=== PATIENT | male | born 1975 | race Caucasian/White ===

== ENCOUNTER 2018-03-05 15:20 | Inpatient (IN) | payer OTHER ==
[2018-03-05 16:41] VITALS: BMI 20.9
--- NOTE | 2018-03-05 17:27 | HP ---
COWS - Scale Resting Pulse: 1= [place] 81-100 Sweatin=Flushed/Facial Moisture Restless Observation: 1= Difficult to Sit Still Pupil Size: 0= Normal to Room Light Bone or Joint Aches: 2= Severe Diffuse Aches Runny Nose/ Eye Tearin= Runny Nose/Eyes GI Upset > 30mins: 3= Vomiting/Diarrhea Tremor Observation: 1= Tremor [place], Not Seen Yawning Observation: 1= 1-2x During Session Anxiety or Irritability: 2=Irritable/Anxious Goose Flesh Skin: 0=Smooth Skin COWS Score: 15 CIWA Score - CIWA Score Nausea/Vomitin Muscle Tremors: 3 Anxiety: 3 Agitation: 3 Paroxysmal Sweats: 3 Orientation: 0-Oriented Tacttile Disturbances: 0-None Auditory Disturbances: 0-None Visual Disturbances: 0-None Headache: 0-None Present CIWA-Ar Total Score: 14 Admission ROS [facility] - HPI Chief Complaint: "I need help from drugs" Allergies/Adverse Reactions: Allergies Allergy/AdvReac Type Severity Reaction Status Date / Time phenobarbital Allergy Severe Verified 03/05/18 17:00 History of Present Illness: 43 y/o male with a hx of poly substance abuse presents today requesting detox. Pt was last here in 2016 and said he has been running the streets since then. States he has been sober for 4 yrs years ago due to incarceration. Denies drug induced seizure. Denies past nor current SI Hx of Hep C Pt's urine negative for heroin but states he uses heroin round the clock with his last use today. Utox positive for fentanyl Exam Limitations: No Limitations - Ebola screening Have you traveled outside of the country in the last 21 days: No Have you had contact with anyone from an Ebola affected area: No Have you been sick,other than usual withdrawal symptoms: No Do you have a fever: No - Review of Systems Constitutional: Chills, Night Sweats, Changes in sleep, Unintentional Wgt. Loss EENT: reports: Nose Congestion Respiratory: reports: No Symptoms reported Cardiac: reports: No Symptoms Reported GI: reports: Diarrhea : reports: Urgency Musculoskeletal: reports: Joint Pain Integumentary: reports: No Symptoms Reported Neuro: reports: No Symptoms reported Endocrine: reports: No Symptoms Reported Hematology: reports: No Symptoms Reported Psychiatric: reports: Orientated x3, Anxious Other Systems: Reviewed and Negative Patient History - Patient Medical History Hx Anemia: No Hx Asthma: No Hx Chronic Obstructive Pulmonary Disease (COPD): No Hx Cancer: No Hx Cardiac Disorders: No Hx Congestive Heart Failure: No Hx Hypertension: No Hx Hypercholesterolemia: No Hx Pacemaker: No HX Cerebrovascular Accident: No Hx Seizures: No Hx Dementia: No Hx Diabetes: No Hx Gastrointestinal Disorders: No Hx Genitourinary Disorders: No Hx Sexually Transmitted Disorders: No Hx Renal Disease (ESRD): No Hx Thyroid Disease: No Hx Human Immunodeficiency Virus (HIV): No (negative) Hx Hepatitis C: Yes (pending treatment.) Hx Depression: No Hx Suicide Attempt: No (denies) Hx Bipolar Disorder: No Hx Schizophrenia: No - Patient Surgical History Past Surgical History: No Hx Neurologic Surgery: No Hx Cataract Extraction: No Hx Cardiac Surgery: No Hx Lung Surgery: No Hx Breast Surgery: No Hx Breast Biopsy: No Hx Abdominal Surgery: No Hx Appendectomy: No Hx Cholecystectomy: No Hx Genitourinary Surgery: No Hx Section: No Hx Orthopedic Surgery: No Anesthesia Reaction: No - PPD History Previous Implant?: Yes Documented Results: Negative w/proof Implanted On Prior R Admission?: Yes Date: 01/15/16 PPD to be Administered?: Yes - Reproductive History Patient is a Female of Child Bearing Age (11 -55 yrs old): No - Smoking Cessation Smoking history: Current every day smoker Have you smoked in the past 12 months: Yes Aproximately how many cigarettes per day: 10 Hx Chewing Tobacco Use: No Initiated information on smoking cessation: Yes 'Breaking Loose' booklet given: 03/05/18 - Substance & Tx. History Hx Alcohol Use: Yes Hx Substance Use: Yes Substance Use Type: Cocaine, Heroin, Marijuana, Opiates Hx Substance Use Treatment: Yes - Substances Abused Cocaine Route: Injection Frequency: Daily Amount used: 2-3 GRAM Age of first use: 41 Date of Last Use: 03/05/18 Alcohol Route: Oral Frequency: Daily Amount used: 1/2 PINT of liquor, 6 pack (12 OZ) beer Age of first use: 13 Date of Last Use: 03/05/18 Marijuana/Hashish Route: Smoking Frequency: Daily Amount used: 1/2 OZ Age of first use: 13 Date of Last Use: 03/05/18 Heroin Route: Injection Frequency: Daily Amount used: 30 BAGS Age of first use: 14 Date of Last Use: 03/05/18 Admission Physical Exam [facility] - Vital Signs Vital Signs: Vital Signs - 24 hr 03/05/18 16:39 Temperature 97.7 F Pulse Rate 87 Respiratory 18 Rate Blood Pressure 126/78 - Physical General Appearance: Yes: Moderate Distress, Anxious HEENTM: Yes: Nasal Congestion Respiratory: Yes: Lungs Clear, Normal Breath Sounds, No Respiratory Distress, No Accessory Muscle Use Neck: Yes: No masses,lesions,Nodules, Trachea in good position Breast: Yes: Breast Exam Deferred Cardiology: Yes: Regular Rhythm, Regular Rate Abdominal: Yes: Non Tender, Soft Genitourinary: Yes: Oliguria Back: Yes: Other (scratch [place] from scratching) Musculoskeletal: Yes: full range of Motion, Gait Steady, Back pain Extremities: Yes: Normal Capillary Refill, Normal Inspection, Non-Tender Neurological: Yes: Fully Oriented, Alert, Motor Strength 5/5, Other (sad, teary) Integumentary: Yes: Dry, Warm, Track [place] (on arms) Lymphatic: Yes: Within Normal Limits - Diagnostic (1) Alcohol dependence with uncomplicated withdrawal Current Visit: Yes Status: Acute (2) Cocaine dependence Current Visit: Yes Status: Chronic Qualifiers: Substance use status: uncomplicated Qualified Code(s): F14.20 - Cocaine dependence, uncomplicated (3) Marijuana dependence Current Visit: Yes Status: Chronic (4) Nicotine dependence Current Visit: Yes Status: Chronic Qualifiers: Nicotine product type: cigarettes Substance use status: uncomplicated Qualified Code(s): F17.210 - Nicotine dependence, cigarettes, uncomplicated (5) Opioid dependence with withdrawal Current Visit: Yes Status: Chronic (6) Substance or medication-induced sleep disorder, insomnia type Current Visit: Yes Status: Suspected (7) Weight loss Current Visit: Yes Status: Chronic (8) Hepatitis C Current Visit: Yes Status: Chronic Qualifiers: Viral hepatitis chronicity: chronic Hepatic coma status: without hepatic coma Qualified Code(s): B18.2 - Chronic viral hepatitis C Cleared for Admission [facility] - Detox or Rehab [facility] Level of Care: Medically Managed Detox Regimen/Protocol: Methadone/Valium [facility] Breath Alcohol Content Breath Alcohol Content: 0 Urine Drug Screen - Results Drug Screen Negative: No Urine Drug Screen Results: THC-Marijuana, CHRISTY-Cocaine, OPI-Opiates, AMP- Amphetamines, MET-Methamphetamine, MDMA-Ecstasy, FEN-Fentanyl
[2018-03-05] MEDS ORDERED: guaiFENesin/D-METHORPHAN HB 10 ML UNIT-DOSE CUPS PO PRN (18:12)
[2018-03-05] MEDS ORDERED: MAGNESIUM HYDROX 2400MG/30ML ORAL SUSPENSION 30 ML CUP PO PRN (18:12)
[2018-03-05] MEDS ORDERED: MENTHOL/PHENOL 1 EACH UD MM PRN (18:12)
[2018-03-05] MEDS ORDERED: MAGNESIUM CITRATE 300 ML BOTTLE PO PRN (18:12)
[2018-03-05] MEDS ORDERED: IBUPROFEN 400 MG TABLET (FP) PO PRN (18:12)
[2018-03-05] MEDS ORDERED: METHADONE HCL 10 MG TABLET (FOR DETOX USE ONLY) PO ONE ×2 (18:12→23:00)
[2018-03-05] MEDS ORDERED: LOPERAMIDE HCL 2 MG CAPSULE PO PRN (18:12)
[2018-03-05] MEDS ORDERED: P-EPHED 60MG/TRIPROLIDI 2.5MG TABLET PO PRN (18:12)
[2018-03-05] MEDS ORDERED: ACETAMINOPHEN 325 MG TABLET (FP) PO PRN (18:12)
[2018-03-05] MEDS ORDERED: NICOTINE POLACRILEX 2 MG GUM BC PRN (18:12)
[2018-03-05] MEDS ORDERED: MAG HYDROX/AL HYDROX/SIMETH 30 ML UNIT-DOSE CUP PO PRN (18:12)
[2018-03-05] MEDS ORDERED: diazePAM 5 MG TABLET PO ONE (18:12)
[2018-03-05] MEDS: NICOTINE 14 MG/24 HOURS TOPICAL PATCH TD SCH (19:52)
[2018-03-05] MEDS: THIAMINE HCL 100 MG TABLET (FP) PO SCH (22:17)
[2018-03-05] MEDS: diazePAM 5 MG TABLET PO SCH (22:17)
[2018-03-06 01:53] LABS: URINE APPEARANCE CLEAR; URINE BILIRUBIN NEGATIVE (<2.0 mg/dL); URINE COLOR DKYELLOW; URINE GLUCOSE (UA) NEGATIVE (NEGATIVE); URINE KETONE NEGATIVE (NEGATIVE); URINE LEUK ESTERASE NEGATIVE (NEGATIVE); URINE NITRITE NEGATIVE (NEGATIVE); URINE PROTEIN 1+ (NEGATIVE)
[2018-03-06 02:17] LABS: URINE HYALINE CAST 2 /lpf; URINE MUCUS FEW
[2018-03-06] MEDS: diazePAM 5 MG TABLET PO SCH ×3 (05:46→22:38)
--- NOTE | 2018-03-06 07:41 | CONSULT ---
[facility] Psychiatric Consult - Data Date of interview: 03/06/18 Admission source: [facility] Identifying data: This is a 43 years old male, single, father of two, domiciled , unem[ployed, on PA, with no psychiatgric hospitalization history, reports history of Heroin, Cocaine Cannabis, Alcohol and Nicotine dependence, reports withdrawal symptoms and seeking detox. Substance Abuse History: - Smoking Cessation. Smoking history: Current every day smoker. Have you smoked in the past 12 months: Yes. Aproximately how many cigarettes per day: 10. Hx Chewing Tobacco Use: No. Initiated information on smoking cessation: Yes. 'Breaking Loose' booklet given: 03/05/18. - Substance & Tx. History. Hx Alcohol Use: Yes. Hx Substance Use: Yes. Substance Use Type : Cocaine, Heroin, Marijuana, Opiates. Hx Substance Use Treatment: Yes. - Substances Abused. Cocaine. Route: Injection. Frequency: Daily. Amount used: 2-3 GRAM. Age of first use: 41. Date of Last Use: 03/05/18. Alcohol. Route: Oral. Frequency: Daily. Amount used: 1/2 PINT of liquor, 6 pack (12 OZ) beer. Age of first use: 13. Date of Last Use: 03/05/18. Marijuana/Hashish. Route: Smoking. Frequency: Daily. Amount used: 1/2 OZ. Age of first use: 13. Date of Last Use: 03/05/18. Heroin. Route: Injection. Frequency: Daily. Amount used: 30 BAGS. Age of first use: 14. Date of Last Use: 03/05/18 Medical History: Weigt loss history, HepC+ Psychiatric History: Denies past psychiatric history, reports anxiety and depression after using drugs. Denies suicidal, homicidal history, denies psychiatric hospitalization history as well. Physical/Sexual Abuse/Trauma History: Denies Additional Comment: Observation. Detox Unit Care Protocol Mental Status Exam - Mental Status Exam Alert and Oriented to: Person Cognitive Function: Fair Patient Appearance: Unkempt Mood: Apprehensive Affect: Mood Congruent Patient Behavior: Cooperative Speech Pattern: Rambling Voice Loudness: Mildly Soft/Quiet Thought Process: Circumstantial, Goal Oriented Thought Disorder: Being Controlled Hallucinations: Denies Suicidal Ideation: Denies Homicidal Ideation: Denies Insight/Judgement: Fair Sleep: Difficulty falling asleep Appetite: Weight loss Muscle strength/Tone: Mild Hypotonicity Gait/Station: Shuffling Additional Comments: Observation. Detox Unit Care Protocol Psychiatric Findings - Problem List ([place] 1, 2,3) (1) Alcohol dependence with uncomplicated withdrawal Current Visit: Yes Status: Acute (2) Cocaine dependence Current Visit: Yes Status: Chronic Qualifiers: Substance use status: uncomplicated Qualified Code(s): F14.20 - Cocaine dependence, uncomplicated (3) Hepatitis C Current Visit: Yes Status: Chronic Qualifiers: Viral hepatitis chronicity: chronic Hepatic coma status: without hepatic coma Qualified Code(s): B18.2 - Chronic viral hepatitis C (4) Marijuana dependence Current Visit: Yes Status: Chronic (5) Nicotine dependence Current Visit: Yes Status: Chronic Qualifiers: Nicotine product type: cigarettes Substance use status: uncomplicated Qualified Code(s): F17.210 - Nicotine dependence, cigarettes, uncomplicated (6) Opioid dependence with withdrawal Current Visit: Yes Status: Chronic (7) Weight loss Current Visit: Yes Status: Chronic (8) Substance or medication-induced sleep disorder, insomnia type Current Visit: Yes Status: Suspected - Initial Treatment Plan Initial Treatment Plan: Observation. Detox Unit Care Protocol
[2018-03-06] MEDS ORDERED: METHADONE HCL 10 MG TABLET (FOR DETOX USE ONLY) PO SCH (10:00)
[2018-03-06] MEDS: PRENATAL VITAMINS W/ FOLIC ACID TABLET (FP) PO SCH (10:25)
[2018-03-06] MEDS: diazePAM 5 MG TABLET PO PRN (10:26)
[2018-03-06] MEDS: NICOTINE 14 MG/24 HOURS TOPICAL PATCH TD SCH (10:30)
--- NOTE | 2018-03-06 10:38 | EKG ---
Test Reason : Blood Pressure : / mmHG Vent. Rate : 066 BPM Atrial Rate : 066 BPM P-R Int : 130 ms QRS Dur : 092 ms QT Int : 430 ms P-R-T Axes : 070 078 057 degrees QTc Int : 450 ms NORMAL SINUS RHYTHM NORMAL ECG NO PREVIOUS ECGS AVAILABLE Confirmed by RAVEN SIN MD ([id number]) on 03/06/2018 10:37:52 AM Referred By: Viri Hernandez Confirmed By:RAVEN SIN MD
[2018-03-06 10:41] LABS: HEMATOCRIT 38.2 % (35.4-49); HEMOGLOBIN 13.1 GM/dL (11.7-16.9); MCH 29.7 pg (25.7-33.7); MCHC 34.3 g/dl (32.0-35.9); MEAN CELL VOLUME 86.6 fl (80-96); MEAN PLT VOLUME 8.4 fl (7.5-11.1); PLATELET COUNT 232 K/MM3 (134-434); RBC 4.41 M/mm3 (4.00-5.60); RDW 15.3 % (11.9-15.9); WHITE BLOOD COUNT 6.4 K/mm3 (4.0-10.0)
[2018-03-06 11:02] LABS: ALBUMIN 3.8 g/dl (3.4-5.0); ALK PHOS 106 U/L (45-117); ANION GAP 7 MMOL/L (8-16); BILIRUBIN,TOTAL 0.3 mg/dL (0.2-1); BLOOD UREA NITROGEN 17 mg/dL (7-18); CALCIUM 8.9 mg/dL (8.5-10.1); CHLORIDE 104 mmol/L (98-107); CO2 29 mmol/L (21-32); CREATININE 0.9 mg/dL (0.55-1.3); GLUCOSE,RANDOM 76 mg/dL (74-106); POTASSIUM 4.1 mmol/L (3.5-5.1); SGOT/AST 87 U/L (15-37); SGPT/ALT 117 U/L (13-61); SODIUM 140 mmol/L (136-145)
--- NOTE | 2018-03-06 11:53 | PN ---
[facility] CIWA - CIWA Score Nausea/Vomitin-Mild Nausea/No Vomiting Muscle Tremors: 3 Anxiety: 3 Agitation: 3 Paroxysmal Sweats: 1-Minimal Palms Moist Orientation: 1-Uncertain about Date Tacttile Disturbances: 1-Very Mild Itch/Numbness Auditory Disturbances: 0-None Visual Disturbances: 0-None Headache: 1-Very Mild CIWA-Ar Total Score: 14 S COWS - Scale Resting Pulse: 0= [place] 80 or Below Sweatin= Chills/Flushing Restless Observation: 1= Difficult to Sit Still Pupil Size: 0= Normal to Room Light Bone or Joint Aches: 2= Severe Diffuse Aches Runny Nose/ Eye Tearin= Nasal Congestion GI Upset > 30mins: 2= Nausea/Diarrhea Tremor Observation of Outstretched Hands: 2= Slight Tremor Visible Yawning Observation: 1= 1-2x During Session Anxiety or Irritability: 2=Irritable/Anxious Goose Flesh Skin: 0=Smooth Skin COWS Score: 12 S Progress Note (SOAP) Subjective: sweat tremor restlessness anxiety body aches joints pain c/o left foot fungal toes left foot mild swell no acute bleeding skin intact mild redness around 5th toe limited mobility Objective: 03/06/18 11:55 Vital Signs Temperature 97.3 F L 03/06/18 09:17 Pulse Rate 76 03/06/18 09:17 Respiratory Rate 18 03/06/18 09:17 Blood Pressure 118/83 03/06/18 09:17 O2 Sat by Pulse Oximetry (%) Laboratory Last Values WBC 6.4 K/mm3 (4.0-10.0) 03/06/18 07:40 RBC 4.41 M/mm3 (4.00-5.60) 03/06/18 07:40 Hgb 13.1 GM/dL (11.7-16.9) 03/06/18 07:40 Hct 38.2 % (35.4-49) 03/06/18 07:40 MCV 86.6 fl (80-96) 03/06/18 07:40 MCH 29.7 pg (25.7-33.7) 03/06/18 07:40 MCHC 34.3 g/dl (32.0-35.9) 03/06/18 07:40 RDW 15.3 % (11.9-15.9) 03/06/18 07:40 Plt Count 232 K/MM3 (134-434) D 03/06/18 07:40 MPV 8.4 fl (7.5-11.1) 03/06/18 07:40 Sodium 140 mmol/L (136-145) 03/06/18 07:40 Potassium 4.1 mmol/L (3.5-5.1) 03/06/18 07:40 Chloride 104 mmol/L (98-107) 03/06/18 07:40 Carbon Dioxide 29 mmol/L (21-32) 03/06/18 07:40 Anion Gap 7 MMOL/L (8-16) L 03/06/18 07:40 BUN 17 mg/dL (7-18) 03/06/18 07:40 Creatinine 0.9 mg/dL (0.55-1.3) 03/06/18 07:40 Creat Clearance w eGFR > 60 (>60) 03/06/18 07:40 Random Glucose 76 mg/dL (74-106) 03/06/18 07:40 Calcium 8.9 mg/dL (8.5-10.1) 03/06/18 07:40 Total Bilirubin 0.3 mg/dL (0.2-1) 03/06/18 07:40 AST 87 U/L (15-37) H 03/06/18 07:40 ALT 117 U/L (13-61) H 03/06/18 07:40 Alkaline Phosphatase 106 U/L (45-117) 03/06/18 07:40 Total Protein 8.0 g/dl (6.4-8.2) 03/06/18 07:40 Albumin 3.8 g/dl (3.4-5.0) 03/06/18 07:40 Urine Color Dkyellow 03/05/18 23:00 Urine Appearance Clear 03/05/18 23:00 Urine pH 5.0 (5.0-8.0) D 03/05/18 23:00 Ur Specific [place] 1.026 (1.010-1.035) 03/05/18 23:00 Urine Protein 1+ (NEGATIVE) H 03/05/18 23:00 Urine Glucose (UA) Negative (NEGATIVE) 03/05/18 23:00 Urine Ketones Negative (NEGATIVE) 03/05/18 23:00 Urine Blood Negative (NEGATIVE) 03/05/18 23:00 Urine Nitrite Negative (NEGATIVE) 03/05/18 23:00 Urine Bilirubin Negative (<2.0 mg/dL) 03/05/18 23:00 Urine Urobilinogen 2.0 mg/dL (0.2-1.0) 03/05/18 23:00 Ur Leukocyte Esterase Negative (NEGATIVE) 03/05/18 23:00 Urine WBC (Auto) 3 /hpf (3-5) 03/05/18 23:00 Urine RBC (Auto) 3 /hpf (0-3) 03/05/18 23:00 Hyaline Casts 2 /lpf 03/05/18 23:00 Urine Mucus Few 03/05/18 23:00 RPR Titer Nonreactive (NONREACTIVE) 03/06/18 07:40 lab noted Assessment: 03/06/18 11:56 withdrawal sx rule out left foot 5th toe fracture Plan: continue detox x ray left foot
[2018-03-06] MEDS: CLOTRIMAZOLE 1% CREAM 15 GM TUBE TP SCH ×2 (13:00→22:39)
[2018-03-06] MEDS: THIAMINE HCL 100 MG TABLET (FP) PO SCH (22:38)
[2018-03-06] MEDS: MELATONIN 5 MG TABLETS PO PRN (22:41)
[2018-03-07] MEDS: diazePAM 5 MG TABLET PO PRN ×2 (05:50→15:09)
[2018-03-07] MEDS: diazePAM 5 MG TABLET PO SCH ×2 (10:08→22:22)
[2018-03-07] MEDS: METHADONE HCL 5 MG TABLET (FOR DETOX USE ONLY) PO SCH (10:08)
[2018-03-07] MEDS: CLOTRIMAZOLE 1% CREAM 15 GM TUBE TP SCH ×2 (10:08→22:22)
[2018-03-07] MEDS: PRENATAL VITAMINS W/ FOLIC ACID TABLET (FP) PO SCH (10:09)
[2018-03-07] MEDS: NICOTINE 14 MG/24 HOURS TOPICAL PATCH TD SCH (10:09)
--- NOTE | 2018-03-07 11:28 | PN ---
[facility] CIWA - CIWA Score Nausea/Vomitin-No Nausea/No Vomiting Muscle Tremors: 3 Anxiety: 2 Agitation: 2 Paroxysmal Sweats: 1-Minimal Palms Moist Orientation: 0-Oriented Tacttile Disturbances: 1-Very Mild Itch/Numbness Auditory Disturbances: 1-Very Mild Visual Disturbances: 0-None Headache: 1-Very Mild CIWA-Ar Total Score: 11 S COWS - Scale Resting Pulse: 1= [place] 81-100 Sweatin= Chills/Flushing Restless Observation: 1= Difficult to Sit Still Pupil Size: 0= Normal to Room Light Bone or Joint Aches: 2= Severe Diffuse Aches Runny Nose/ Eye Tearin= Nasal Congestion GI Upset > 30mins: 1= Stomach Cramp Tremor Observation of Outstretched Hands: 1= Tremor [place], Not Seen Yawning Observation: 1= 1-2x During Session Anxiety or Irritability: 1=Feels Anxious/Irritable Goose Flesh Skin: 0=Smooth Skin COWS Score: 10 [facility] Progress Note (SOAP) Subjective: body aches joints pain sweat tremor anxiety restlessness Objective: 03/07/18 11:27 Vital Signs Temperature 98.1 F 03/07/18 09:40 Pulse Rate 92 H 03/07/18 09:40 Respiratory Rate 18 03/07/18 09:40 Blood Pressure 109/75 03/07/18 09:40 O2 Sat by Pulse Oximetry (%) Laboratory Last Values WBC 6.4 K/mm3 (4.0-10.0) 03/06/18 07:40 RBC 4.41 M/mm3 (4.00-5.60) 03/06/18 07:40 Hgb 13.1 GM/dL (11.7-16.9) 03/06/18 07:40 Hct 38.2 % (35.4-49) 03/06/18 07:40 MCV 86.6 fl (80-96) 03/06/18 07:40 MCH 29.7 pg (25.7-33.7) 03/06/18 07:40 MCHC 34.3 g/dl (32.0-35.9) 03/06/18 07:40 RDW 15.3 % (11.9-15.9) 03/06/18 07:40 Plt Count 232 K/MM3 (134-434) D 03/06/18 07:40 MPV 8.4 fl (7.5-11.1) 03/06/18 07:40 Sodium 140 mmol/L (136-145) 03/06/18 07:40 Potassium 4.1 mmol/L (3.5-5.1) 03/06/18 07:40 Chloride 104 mmol/L (98-107) 03/06/18 07:40 Carbon Dioxide 29 mmol/L (21-32) 03/06/18 07:40 Anion Gap 7 MMOL/L (8-16) L 03/06/18 07:40 BUN 17 mg/dL (7-18) 03/06/18 07:40 Creatinine 0.9 mg/dL (0.55-1.3) 03/06/18 07:40 Creat Clearance w eGFR > 60 (>60) 03/06/18 07:40 Random Glucose 76 mg/dL (74-106) 03/06/18 07:40 Calcium 8.9 mg/dL (8.5-10.1) 03/06/18 07:40 Total Bilirubin 0.3 mg/dL (0.2-1) 03/06/18 07:40 AST 87 U/L (15-37) H 03/06/18 07:40 ALT 117 U/L (13-61) H 03/06/18 07:40 Alkaline Phosphatase 106 U/L (45-117) 03/06/18 07:40 Total Protein 8.0 g/dl (6.4-8.2) 03/06/18 07:40 Albumin 3.8 g/dl (3.4-5.0) 03/06/18 07:40 Urine Color Dkyellow 03/05/18 23:00 Urine Appearance Clear 03/05/18 23:00 Urine pH 5.0 (5.0-8.0) D 03/05/18 23:00 Ur Specific [place] 1.026 (1.010-1.035) 03/05/18 23:00 Urine Protein 1+ (NEGATIVE) H 03/05/18 23:00 Urine Glucose (UA) Negative (NEGATIVE) 03/05/18 23:00 Urine Ketones Negative (NEGATIVE) 03/05/18 23:00 Urine Blood Negative (NEGATIVE) 03/05/18 23:00 Urine Nitrite Negative (NEGATIVE) 03/05/18 23:00 Urine Bilirubin Negative (<2.0 mg/dL) 03/05/18 23:00 Urine Urobilinogen 2.0 mg/dL (0.2-1.0) 03/05/18 23:00 Ur Leukocyte Esterase Negative (NEGATIVE) 03/05/18 23:00 Urine WBC (Auto) 3 /hpf (3-5) 03/05/18 23:00 Urine RBC (Auto) 3 /hpf (0-3) 03/05/18 23:00 Hyaline Casts 2 /lpf 03/05/18 23:00 Urine Mucus Few 03/05/18 23:00 RPR Titer Nonreactive (NONREACTIVE) 03/06/18 07:40 lab noted Assessment: 03/07/18 11:28 withdrawal sx Plan: continue detox
[2018-03-07] MEDS: THIAMINE HCL 100 MG TABLET (FP) PO SCH (22:22)
[2018-03-08] MEDS: diazePAM 5 MG TABLET PO PRN ×4 (03:31→18:32)
[2018-03-08] MEDS: diazePAM 5 MG TABLET PO SCH ×2 (10:26→22:23)
[2018-03-08] MEDS: CLOTRIMAZOLE 1% CREAM 15 GM TUBE TP SCH ×2 (10:26→22:23)
[2018-03-08] MEDS: NICOTINE 14 MG/24 HOURS TOPICAL PATCH TD SCH (10:26)
[2018-03-08] MEDS: PRENATAL VITAMINS W/ FOLIC ACID TABLET (FP) PO SCH (10:26)
[2018-03-08] MEDS: METHADONE HCL 5 MG TABLET (FOR DETOX USE ONLY) PO SCH (10:26)
--- NOTE | 2018-03-08 12:25 | PN ---
[facility] Progress Note (SOAP) Subjective: sweat tremor body aches joints pain trouble sleep at night low energy Objective: 03/08/18 12:24 Vital Signs Temperature 97.7 F 03/08/18 09:42 Pulse Rate 118 H 03/08/18 09:42 Respiratory Rate 18 11 09:42 Blood Pressure 118/85 03/08/18 09:42 O2 Sat by Pulse Oximetry (%) Laboratory Last Values WBC 6.4 K/mm3 (4.0-10.0) 03/06/18 07:40 RBC 4.41 M/mm3 (4.00-5.60) 03/06/18 07:40 Hgb 13.1 GM/dL (11.7-16.9) 03/06/18 07:40 Hct 38.2 % (35.4-49) 03/06/18 07:40 MCV 86.6 fl (80-96) 03/06/18 07:40 MCH 29.7 pg (25.7-33.7) 03/06/18 07:40 MCHC 34.3 g/dl (32.0-35.9) 03/06/18 07:40 RDW 15.3 % (11.9-15.9) 03/06/18 07:40 Plt Count 232 K/MM3 (134-434) D 03/06/18 07:40 MPV 8.4 fl (7.5-11.1) 03/06/18 07:40 Sodium 140 mmol/L (136-145) 03/06/18 07:40 Potassium 4.1 mmol/L (3.5-5.1) 03/06/18 07:40 Chloride 104 mmol/L (98-107) 03/06/18 07:40 Carbon Dioxide 29 mmol/L (21-32) 03/06/18 07:40 Anion Gap 7 MMOL/L (8-16) L 03/06/18 07:40 BUN 17 mg/dL (7-18) 03/06/18 07:40 Creatinine 0.9 mg/dL (0.55-1.3) 03/06/18 07:40 Creat Clearance w eGFR > 60 (>60) 03/06/18 07:40 Random Glucose 76 mg/dL (74-106) 03/06/18 07:40 Calcium 8.9 mg/dL (8.5-10.1) 03/06/18 07:40 Total Bilirubin 0.3 mg/dL (0.2-1) 03/06/18 07:40 AST 87 U/L (15-37) H 03/06/18 07:40 ALT 117 U/L (13-61) H 03/06/18 07:40 Alkaline Phosphatase 106 U/L (45-117) 03/06/18 07:40 Total Protein 8.0 g/dl (6.4-8.2) 03/06/18 07:40 Albumin 3.8 g/dl (3.4-5.0) 03/06/18 07:40 Urine Color Dkyellow 03/05/18 23:00 Urine Appearance Clear 03/05/18 23:00 Urine pH 5.0 (5.0-8.0) D 03/05/18 23:00 Ur Specific [place] 1.026 (1.010-1.035) 03/05/18 23:00 Urine Protein 1+ (NEGATIVE) H 03/05/18 23:00 Urine Glucose (UA) Negative (NEGATIVE) 03/05/18 23:00 Urine Ketones Negative (NEGATIVE) 03/05/18 23:00 Urine Blood Negative (NEGATIVE) 03/05/18 23:00 Urine Nitrite Negative (NEGATIVE) 03/05/18 23:00 Urine Bilirubin Negative (<2.0 mg/dL) 03/05/18 23:00 Urine Urobilinogen 2.0 mg/dL (0.2-1.0) 03/05/18 23:00 Ur Leukocyte Esterase Negative (NEGATIVE) 03/05/18 23:00 Urine WBC (Auto) 3 /hpf (3-5) 03/05/18 23:00 Urine RBC (Auto) 3 /hpf (0-3) 03/05/18 23:00 Hyaline Casts 2 /lpf 03/05/18 23:00 Urine Mucus Few 03/05/18 23:00 RPR Titer Nonreactive (NONREACTIVE) 03/06/18 07:40 lab noted Assessment: 03/08/18 12:25 withdrawal sx Plan: continue detox
[2018-03-08] MEDS: THIAMINE HCL 100 MG TABLET (FP) PO SCH (22:23)
[2018-03-08] MEDS: MELATONIN 5 MG TABLETS PO PRN (22:24)
[2018-03-09] MEDS ORDERED: diazePAM 5 MG TABLET PO SCH (10:00)
[2018-03-09] MEDS ORDERED: METHADONE HCL 10 MG TABLET (FOR DETOX USE ONLY) PO SCH (10:00)
[2018-03-09] MEDS: PRENATAL VITAMINS W/ FOLIC ACID TABLET (FP) PO SCH (10:42)
[2018-03-09] MEDS: NICOTINE 14 MG/24 HOURS TOPICAL PATCH TD SCH (10:43)
[2018-03-09] MEDS: CLOTRIMAZOLE 1% CREAM 15 GM TUBE TP SCH ×2 (10:43→22:21)
--- NOTE | 2018-03-09 12:00 | PN ---
[facility] Progress Note (SOAP) Subjective: feeling better no body ache no tremor less sweat social with peers in day room Objective: 03/09/18 11:59 Vital Signs Temperature 97.7 F 03/09/18 09:30 Pulse Rate 118 H 03/09/18 09:30 Respiratory Rate 18 03/09/18 09:30 Blood Pressure 118/80 03/09/18 09:30 O2 Sat by Pulse Oximetry (%) Laboratory Last Values WBC 6.4 K/mm3 (4.0-10.0) 03/06/18 07:40 RBC 4.41 M/mm3 (4.00-5.60) 03/06/18 07:40 Hgb 13.1 GM/dL (11.7-16.9) 03/06/18 07:40 Hct 38.2 % (35.4-49) 03/06/18 07:40 MCV 86.6 fl (80-96) 03/06/18 07:40 MCH 29.7 pg (25.7-33.7) 03/06/18 07:40 MCHC 34.3 g/dl (32.0-35.9) 03/06/18 07:40 RDW 15.3 % (11.9-15.9) 03/06/18 07:40 Plt Count 232 K/MM3 (134-434) D 03/06/18 07:40 MPV 8.4 fl (7.5-11.1) 03/06/18 07:40 Sodium 140 mmol/L (136-145) 03/06/18 07:40 Potassium 4.1 mmol/L (3.5-5.1) 03/06/18 07:40 Chloride 104 mmol/L (98-107) 03/06/18 07:40 Carbon Dioxide 29 mmol/L (21-32) 03/06/18 07:40 Anion Gap 7 MMOL/L (8-16) L 03/06/18 07:40 BUN 17 mg/dL (7-18) 03/06/18 07:40 Creatinine 0.9 mg/dL (0.55-1.3) 03/06/18 07:40 Creat Clearance w eGFR > 60 (>60) 03/06/18 07:40 Random Glucose 76 mg/dL (74-106) 03/06/18 07:40 Calcium 8.9 mg/dL (8.5-10.1) 03/06/18 07:40 Total Bilirubin 0.3 mg/dL (0.2-1) 03/06/18 07:40 AST 87 U/L (15-37) H 03/06/18 07:40 ALT 117 U/L (13-61) H 03/06/18 07:40 Alkaline Phosphatase 106 U/L (45-117) 03/06/18 07:40 Total Protein 8.0 g/dl (6.4-8.2) 03/06/18 07:40 Albumin 3.8 g/dl (3.4-5.0) 03/06/18 07:40 Urine Color Dkyellow 03/05/18 23:00 Urine Appearance Clear 03/05/18 23:00 Urine pH 5.0 (5.0-8.0) D 03/05/18 23:00 Ur Specific [place] 1.026 (1.010-1.035) 03/05/18 23:00 Urine Protein 1+ (NEGATIVE) H 03/05/18 23:00 Urine Glucose (UA) Negative (NEGATIVE) 03/05/18 23:00 Urine Ketones Negative (NEGATIVE) 03/05/18 23:00 Urine Blood Negative (NEGATIVE) 03/05/18 23:00 Urine Nitrite Negative (NEGATIVE) 03/05/18 23:00 Urine Bilirubin Negative (<2.0 mg/dL) 03/05/18 23:00 Urine Urobilinogen 2.0 mg/dL (0.2-1.0) 03/05/18 23:00 Ur Leukocyte Esterase Negative (NEGATIVE) 03/05/18 23:00 Urine WBC (Auto) 3 /hpf (3-5) 03/05/18 23:00 Urine RBC (Auto) 3 /hpf (0-3) 03/05/18 23:00 Hyaline Casts 2 /lpf 03/05/18 23:00 Urine Mucus Few 03/05/18 23:00 RPR Titer Nonreactive (NONREACTIVE) 03/06/18 07:40 lab noted Assessment: 03/09/18 11:59 mild withdrawal sx Plan: medically supervised detox
[2018-03-09] MEDS: THIAMINE HCL 100 MG TABLET (FP) PO SCH (22:21)
[2018-03-09] MEDS: MELATONIN 5 MG TABLETS PO PRN (22:21)
[2018-03-10] MEDS ORDERED: METHADONE HCL 5 MG TABLET (FOR DETOX USE ONLY) PO SCH (06:00)
[2018-03-10 06:20] VITALS: BP 119/95; PULSE 118; TEMP 97.7
--- NOTE | 2018-03-10 08:33 | DS ---
[facility] Detox Discharge Summary Admission Date: 03/05/18 Discharge Date: 03/10/18 - History Present History: Alcohol Dependence, Cocaine Dependence, Opioid Dependence, Sedative Dependence - Physical Exam Results Vital Signs: Vital Signs Temperature 97.7 F 03/10/18 06:00 Pulse Rate 118 H 03/10/18 06:00 Respiratory Rate 18 03/10/18 06:00 Blood Pressure 119/95 03/10/18 06:00 O2 Sat by Pulse Oximetry (%) - Treatment Hospital Course: Detox Protocol Followed, Detoxed Safely, Responded well, Discharged Condition Good, Rehab Referral Accepted - Medication Discharge Medications: Ambulatory Orders NK [No Known Home Medication] 03/05/18 - Diagnosis (1) Alcohol dependence with uncomplicated withdrawal Status: Chronic (2) Sedative, hypnotic or anxiolytic dependence with withdrawal, uncomplicated Status: Chronic (3) Cocaine dependence Status: Chronic Qualifiers: Substance use status: uncomplicated Qualified Code(s): F14.20 - Cocaine dependence, uncomplicated (4) Hepatitis C Status: Chronic Qualifiers: Viral hepatitis chronicity: chronic Hepatic coma status: without hepatic coma Qualified Code(s): B18.2 - Chronic viral hepatitis C (5) Marijuana dependence Status: Chronic (6) Nicotine dependence Status: Chronic Qualifiers: Nicotine product type: cigarettes Substance use status: uncomplicated Qualified Code(s): F17.210 - Nicotine dependence, cigarettes, uncomplicated (7) Opioid dependence with withdrawal Status: Chronic (8) Sedative, hypnotic or anxiolytic dependence, uncomplicated Status: Chronic (9) Weight loss Status: Chronic (10) Substance or medication-induced sleep disorder, insomnia type Status: Suspected - AMA Did Patient Leave Against Medical Advice: No (going home)
== END 2018-03-10 07:10 | disposition home or self-care (01) | DRG 773 ==
LOC: YASAS 15:20 → Y6N 18:26
PROC: HZ2ZZZZ Detoxification Services for Substance Abuse Treatment (ICD-10-PCS; principal; 2018-03-05)
DX: F11.23 Opioid dependence with withdrawal (principal); F10.230 Alcohol dependence with withdrawal, uncomplicated; F13.230 Sedative, hypnotic or anxiolytic dependence with withdrawal, uncomplicated; F14.20 Cocaine dependence, uncomplicated; F12.20 Cannabis dependence, uncomplicated; F17.210 Nicotine dependence, cigarettes, uncomplicated; F19.282 Other psychoactive substance dependence with psychoactive substance-induced sleep disorder; B18.2 Chronic viral hepatitis C; R63.4 Abnormal weight loss; Z68.21 Body mass index [BMI] 21.0-21.9, adult
CPT/HCPCS: 36415; 80053; 81003; 81015; 85027; 86593; 93005; 93010

== ENCOUNTER 2020-05-03 12:38 | Inpatient (IN) | payer OTHER ==
[2020-05-03 13:12] VITALS: BMI 21.6
[2020-05-03] MEDS ORDERED: IBUPROFEN 400 MG TABLET (FP) PO PRN (13:12)
[2020-05-03] MEDS ORDERED: chlordiazePOXIDE HCL 25 MG CAPSULE PO PRN (13:12)
[2020-05-03] MEDS ORDERED: MAG HYDROX/AL HYDROX/SIMETH 30 ML UNIT-DOSE CUP PO PRN (13:12)
[2020-05-03] MEDS ORDERED: MAGNESIUM HYDROX 2400MG/30ML ORAL SUSPENSION 30 ML CUP PO PRN (13:12)
[2020-05-03] MEDS ORDERED: cloNIDine HCL 0.1 MG TABLET PO PRN (13:12)
[2020-05-03] MEDS ORDERED: ACETAMINOPHEN 325 MG TABLET (FP) PO PRN ×2 (13:12)
[2020-05-03] MEDS ORDERED: BISMUTH SUBSALICYLATE 524 MG/30 ML UD PO PRN (13:12)
[2020-05-03] MEDS ORDERED: NICOTINE POLACRILEX 2 MG GUM BUC PRN (13:12)
[2020-05-03] MEDS ORDERED: MAGNESIUM CITRATE 300 ML BOTTLE PO PRN (13:12)
[2020-05-03] MEDS ORDERED: MENTHOL/PHENOL 1 EACH UD MM PRN (13:12)
[2020-05-03] MEDS ORDERED: ONDANSETRON *ODT* 4 MG TABLET SL PRN (13:12)
[2020-05-03] MEDS ORDERED: chlordiazePOXIDE HCL 25 MG CAPSULE PO ONE (13:12)
[2020-05-03] MEDS ORDERED: METHADONE HCL 10 MG TABLET (FOR DETOX USE ONLY) PO ONE (13:12)
[2020-05-03] MEDS: PRENATAL VITAMINS W/ FOLIC ACID TABLET (FP) PO SCH (14:21)
[2020-05-03] MEDS: METHOCARBAMOL 500 MG TABLET PO PRN (14:21)
[2020-05-03] MEDS: chlordiazePOXIDE HCL 25 MG CAPSULE PO SCH ×2 (18:21→22:26)
[2020-05-03] MEDS: THIAMINE HCL 100 MG TABLET (FP) PO SCH (22:27)
[2020-05-03] MEDS: MELATONIN 5 MG TABLETS PO SCH (22:35)
[2020-05-04] MEDS: chlordiazePOXIDE HCL 25 MG CAPSULE PO SCH ×4 (05:36→22:26)
[2020-05-04] MEDS ORDERED: METHADONE HCL 10 MG TABLET (FOR DETOX USE ONLY) ONE (09:12)
[2020-05-04] MEDS ORDERED: METHADONE HCL 5 MG TABLET (FOR DETOX USE ONLY) ONE (09:12)
[2020-05-04] MEDS ORDERED: METHADONE (DETOX) 20 MG, METHADONE (DETOX) 5 MG PO ONE (10:00)
[2020-05-04] MEDS: PRENATAL VITAMINS W/ FOLIC ACID TABLET (FP) PO SCH (10:19)
[2020-05-04 11:11] LABS: HEMATOCRIT 37.9 % (35.4-49); HEMOGLOBIN 12.8 GM/dL (11.7-16.9); MCHC 33.8 g/dl (32.0-35.9); MEAN CELL VOLUME 85.7 fl (80-96); MEAN PLT VOLUME 7.8 fl (7.5-11.1); PLATELET COUNT 269 K/MM3 (134-434); RBC 4.43 M/mm3 (4.00-5.60); RDW 15.3 % (11.9-15.9); WHITE BLOOD COUNT 4.3 K/mm3 (4.0-10.0)
[2020-05-04 11:12] LABS: POTASSIUM 4.1 mmol/L (3.5-5.1)
[2020-05-04 11:21] LABS: CALCIUM 8.9 mg/dL (8.5-10.1)
[2020-05-04 11:22] LABS: ALBUMIN 3.6 g/dl (3.4-5.0); BLOOD UREA NITROGEN 15.8 mg/dL (7-18)
[2020-05-04 11:26] LABS: CREATININE 0.9 mg/dL (0.55-1.3); TOT PROT 7.7 g/dl (6.4-8.2)
[2020-05-04] MEDS: THIAMINE HCL 100 MG TABLET (FP) PO SCH (22:26)
[2020-05-04] MEDS: MELATONIN 5 MG TABLETS PO SCH (22:27)
[2020-05-05] MEDS ORDERED: chlordiazePOXIDE HCL 25 MG CAPSULE PO SCH (05:00)
[2020-05-05] MEDS ORDERED: METHADONE HCL 10 MG TABLET (FOR DETOX USE ONLY) PO ONE (10:00)
[2020-05-05] MEDS: LORazepam 2 MG TABLET PO SCH ×3 (10:04→22:04)
[2020-05-05] MEDS: PRENATAL VITAMINS W/ FOLIC ACID TABLET (FP) PO SCH (10:04)
[2020-05-05] MEDS ORDERED: COLLOIDAL OATMEAL 1 BAR EACH TP PRN (11:41)
[2020-05-05] MEDS: hydrOXYzine PAMOATE 25 MG CAPSULE (FP) PO PRN (15:33)
[2020-05-05] MEDS: METHOCARBAMOL 500 MG TABLET PO PRN (15:33)
[2020-05-05 17:40] LABS: HIV INTERPRETATION NEGATIVE (NEGATIVE)
[2020-05-05] MEDS: LORazepam 1 MG TABLET PO PRN (19:49)
[2020-05-05] MEDS: THIAMINE HCL 100 MG TABLET (FP) PO SCH (22:04)
[2020-05-05] MEDS: MELATONIN 5 MG TABLETS PO SCH (22:04)
[2020-05-06] MEDS ORDERED: chlordiazePOXIDE HCL 10 MG CAPSULE PO PRN
[2020-05-06] MEDS: LORazepam 1 MG TABLET PO PRN ×2 (01:00→13:18)
[2020-05-06] MEDS ORDERED: chlordiazePOXIDE HCL 10 MG CAPSULE PO SCH (05:00)
[2020-05-06] MEDS: LORazepam 1 MG TABLET PO SCH ×4 (05:15→22:00)
[2020-05-06] MEDS: hydrOXYzine PAMOATE 25 MG CAPSULE (FP) PO PRN ×2 (05:16→18:16)
[2020-05-06] MEDS ORDERED: MASKS NR ONE (08:46)
[2020-05-06] MEDS ORDERED: METHADONE HCL 5 MG TABLET (FOR DETOX USE ONLY) ONE (09:46)
[2020-05-06] MEDS ORDERED: METHADONE HCL 10 MG TABLET (FOR DETOX USE ONLY) ONE (09:46)
[2020-05-06] MEDS ORDERED: METHADONE (DETOX) 10 MG, METHADONE (DETOX) 5 MG PO ONE (10:00)
[2020-05-06] MEDS: PRENATAL VITAMINS W/ FOLIC ACID TABLET (FP) PO SCH (10:22)
[2020-05-06] MEDS: MELATONIN 5 MG TABLETS PO SCH (21:59)
[2020-05-06] MEDS: THIAMINE HCL 100 MG TABLET (FP) PO SCH (22:00)
[2020-05-06] MEDS: METHOCARBAMOL 500 MG TABLET PO PRN (22:00)
[2020-05-07] MEDS: LORazepam 0.5 MG TABLET PO PRN ×2 (01:09→14:02)
[2020-05-07] MEDS ORDERED: chlordiazePOXIDE HCL 10 MG CAPSULE PO SCH (05:00)
[2020-05-07] MEDS: LORazepam 0.5 MG TABLET PO SCH ×4 (05:22→22:08)
[2020-05-07] MEDS: hydrOXYzine PAMOATE 25 MG CAPSULE (FP) PO PRN ×2 (05:23→17:15)
[2020-05-07] MEDS ORDERED: METHADONE HCL 10 MG TABLET (FOR DETOX USE ONLY) PO ONE (10:00)
[2020-05-07] MEDS: PRENATAL VITAMINS W/ FOLIC ACID TABLET (FP) PO SCH (10:28)
[2020-05-07] MEDS: METHOCARBAMOL 500 MG TABLET PO PRN (17:14)
[2020-05-07] MEDS: THIAMINE HCL 100 MG TABLET (FP) PO SCH (22:08)
[2020-05-07] MEDS: MELATONIN 5 MG TABLETS PO SCH (22:08)
[2020-05-08] MEDS ORDERED: LORazepam 0.5 MG TABLET PO ONE (05:00)
[2020-05-08] MEDS ORDERED: chlordiazePOXIDE HCL 10 MG CAPSULE PO ONE (05:00)
[2020-05-08] MEDS ORDERED: METHADONE HCL 5 MG TABLET (FOR DETOX USE ONLY) PO ONE (06:00)
[2020-05-08] MEDS: PRENATAL VITAMINS W/ FOLIC ACID TABLET (FP) PO SCH (10:08)
[2020-05-08] MEDS: hydrOXYzine PAMOATE 25 MG CAPSULE (FP) PO PRN (10:08)
[2020-05-08 17:32] VITALS: BP 110/79; PULSE 92; TEMP 98
== END 2020-05-08 18:57 | disposition other institution (70) | DRG 773 ==
LOC: YASAS 12:38 → Y6N 13:14
PROVIDERS: ADMIT Allergy & Immunology; ATTEND Allergy & Immunology
PROC: HZ2ZZZZ Detoxification Services for Substance Abuse Treatment (ICD-10-PCS; principal; 2020-05-03)
DX: F11.23 Opioid dependence with withdrawal (principal); F10.230 Alcohol dependence with withdrawal, uncomplicated; F14.20 Cocaine dependence, uncomplicated; F12.20 Cannabis dependence, uncomplicated; F17.210 Nicotine dependence, cigarettes, uncomplicated; M54.5 Low back pain; G89.29 Other chronic pain; B18.2 Chronic viral hepatitis C; R63.4 Abnormal weight loss; Z68.21 Body mass index [BMI] 21.0-21.9, adult; Z59.0 Homelessness
CPT/HCPCS: 36415; 80053; 85027; 86780; 87389; 93005; 93010; C9803; U0003

== ENCOUNTER 2020-05-08 19:01 | Inpatient (IN) | payer OTHER ==
[~2020-05-08 19:01] MED LIST: ACETAMINOPHEN 325 MG TABLET (FP) PO PRN; COLLOIDAL OATMEAL 1 BAR EACH TP PRN; IBUPROFEN 400 MG TABLET (FP) PO PRN; LOPERAMIDE HCL 2 MG CAPSULE PO PRN; MAG HYDROX/AL HYDROX/SIMETH 30 ML UNIT-DOSE CUP PO PRN; MAGNESIUM CITRATE 300 ML BOTTLE PO PRN; MAGNESIUM HYDROX 2400MG/30ML ORAL SUSPENSION 30 ML CUP PO PRN; NICOTINE POLACRILEX 2 MG GUM BC PRN; P-EPHED 60MG/TRIPROLIDI 2.5MG TABLET PO PRN; guaiFENesin 200 MG/10 ML 10 ML UNIT-DOSE CUPS PO PRN; hydrOXYzine PAMOATE 25 MG CAPSULE (FP) PO SCH
[2020-05-08 19:13] VITALS: BP 116/81; PULSE 104; TEMP 98
[2020-05-08] MEDS ORDERED: MASKS NR ONE (19:39)
[2020-05-08] MEDS ORDERED: METHOCARBAMOL 500 MG TABLET PO PRN (19:52)
[2020-05-08] MEDS ORDERED: THIAMINE HCL 100 MG TABLET (FP) PO SCH (22:00)
[2020-05-08] MEDS ORDERED: MELATONIN 5 MG TABLETS PO SCH (22:00)
[2020-05-09] MEDS ORDERED: PRENATAL VITAMINS W/ FOLIC ACID TABLET (FP) PO SCH (10:00)
[2020-05-09] MEDS ORDERED: NICOTINE 7 MG/24 HOURS TOPICAL PATCH TD SCH (10:00)
== END 2020-05-08 20:45 | disposition home or self-care (01) | DRG 772 ==
LOC: YASAS 19:01 → Y5N 19:02
PROVIDERS: ADMIT Allergy & Immunology; ATTEND Allergy & Immunology
PROC: HZ42ZZZ Group Counseling for Substance Abuse Treatment, Cognitive-Behavioral (ICD-10-PCS; principal; 2020-05-08)
DX: F11.20 Opioid dependence, uncomplicated (principal); F10.20 Alcohol dependence, uncomplicated; F14.20 Cocaine dependence, uncomplicated; F12.20 Cannabis dependence, uncomplicated; F17.210 Nicotine dependence, cigarettes, uncomplicated; B18.2 Chronic viral hepatitis C; R30.0 Dysuria; R63.4 Abnormal weight loss; Z68.20 Body mass index [BMI] 20.0-20.9, adult; Z88.8 Allergy status to other drugs, medicaments and biological substances

== ENCOUNTER 2020-07-03 17:47 | Inpatient (IN) | payer OTHER ==
[2020-07-03] MEDS ORDERED: MAGNESIUM HYDROX 2400MG/30ML ORAL SUSPENSION 30 ML CUP PO PRN (20:27)
[2020-07-03] MEDS ORDERED: IBUPROFEN 400 MG TABLET (FP) PO PRN (20:27)
[2020-07-03] MEDS ORDERED: BISMUTH SUBSALICYLATE 524 MG/30 ML UD PO PRN (20:27)
[2020-07-03] MEDS ORDERED: hydrOXYzine PAMOATE 25 MG CAPSULE (FP) PO PRN (20:27)
[2020-07-03] MEDS ORDERED: MAGNESIUM CITRATE 300 ML BOTTLE PO PRN (20:27)
[2020-07-03] MEDS ORDERED: ONDANSETRON *ODT* 4 MG TABLET SL PRN (20:27)
[2020-07-03] MEDS ORDERED: MENTHOL/PHENOL 1 EACH UD MM PRN (20:27)
[2020-07-03] MEDS ORDERED: ACETAMINOPHEN 325 MG TABLET (FP) PO PRN ×2 (20:27)
[2020-07-03] MEDS ORDERED: NICOTINE POLACRILEX 2 MG GUM BUC PRN (20:27)
[2020-07-03] MEDS ORDERED: MAG HYDROX/AL HYDROX/SIMETH 30 ML UNIT-DOSE CUP PO PRN (20:27)
[2020-07-03] MEDS ORDERED: METHADONE HCL 10 MG TABLET (FOR DETOX USE ONLY) PO ONE ×3 (20:29→23:00)
[2020-07-03] MEDS ORDERED: cloNIDine HCL 0.1 MG TABLET PO PRN (20:29)
[2020-07-03] MEDS ORDERED: diazePAM 5 MG TABLET PO PRN (20:30)
[2020-07-03 23:23] VITALS: BMI 22.3
[2020-07-04] MEDS ORDERED: diazePAM 5 MG TABLET ONE ×2 (03:15→07:02)
[2020-07-04] MEDS ORDERED: METHOCARBAMOL 500 MG TABLET ONE (03:16)
[2020-07-04] MEDS ORDERED: METHADONE HCL 10 MG TABLET (FOR DETOX USE ONLY) ONE ×2 (03:16→11:16)
[2020-07-04] MEDS: diazePAM 5 MG TABLET PO SCH ×5 (03:20→23:08)
[2020-07-04] MEDS: METHOCARBAMOL 500 MG TABLET PO PRN ×2 (03:21→11:26)
[2020-07-04] MEDS: MELATONIN 5 MG TABLETS PO SCH ×2 (03:22→23:09)
[2020-07-04] MEDS: THIAMINE HCL 100 MG TABLET (FP) PO SCH ×2 (03:22→23:09)
[2020-07-04] MEDS ORDERED: METHADONE (DETOX) 20 MG, METHADONE (DETOX) 5 MG PO ONE (10:00)
[2020-07-04] MEDS ORDERED: METHADONE HCL 5 MG TABLET (FOR DETOX USE ONLY) ONE (11:16)
[2020-07-04] MEDS: PRENATAL VITAMINS W/ FOLIC ACID TABLET (FP) PO SCH (11:26)
[2020-07-04 11:35] LABS: ALBUMIN 3.4 g/dl (3.4-5.0); BLOOD UREA NITROGEN 16.6 mg/dL (7-18); CALCIUM 8.4 mg/dL (8.5-10.1)
[2020-07-04 11:38] LABS: CREATININE 0.8 mg/dL (0.55-1.3)
[2020-07-04 11:39] LABS: HEMATOCRIT 35.8 % (35.4-49); HEMOGLOBIN 12.2 GM/dL (11.7-16.9); MCH 29.5 pg (25.7-33.7); MCHC 34.2 g/dl (32.0-35.9); MEAN CELL VOLUME 86.5 fl (80-96); MEAN PLT VOLUME 8.2 fl (7.5-11.1); PLATELET COUNT 209 K/MM3 (134-434); RBC 4.15 M/mm3 (4.00-5.60); RDW 16.8 % (11.9-15.9); WHITE BLOOD COUNT 4.5 K/mm3 (4.0-10.0)
[2020-07-04 11:40] LABS: BILIRUBIN,TOTAL 0.7 mg/dL (0.2-1); TOT PROT 7.1 g/dl (6.4-8.2)
[2020-07-05] MEDS: diazePAM 5 MG TABLET PO SCH ×3 (05:38→22:53)
[2020-07-05] MEDS ORDERED: METHADONE HCL 10 MG TABLET (FOR DETOX USE ONLY) PO ONE (10:00)
[2020-07-05] MEDS: PRENATAL VITAMINS W/ FOLIC ACID TABLET (FP) PO SCH (10:03)
[2020-07-05] MEDS: MELATONIN 5 MG TABLETS PO SCH (22:52)
[2020-07-05] MEDS: THIAMINE HCL 100 MG TABLET (FP) PO SCH (22:53)
[2020-07-06] MEDS: diazePAM 5 MG TABLET PO SCH ×2 (05:22→17:41)
[2020-07-06] MEDS ORDERED: METHADONE HCL 10 MG TABLET (FOR DETOX USE ONLY) ONE (09:32)
[2020-07-06] MEDS ORDERED: METHADONE HCL 5 MG TABLET (FOR DETOX USE ONLY) ONE (09:33)
[2020-07-06] MEDS ORDERED: METHADONE (DETOX) 10 MG, METHADONE (DETOX) 5 MG PO ONE (10:00)
[2020-07-06] MEDS: PRENATAL VITAMINS W/ FOLIC ACID TABLET (FP) PO SCH (10:10)
[2020-07-06] MEDS ORDERED: COLLOIDAL OATMEAL 1 BAR EACH TP PRN (20:24)
[2020-07-06] MEDS: MELATONIN 5 MG TABLETS PO SCH (22:19)
[2020-07-06] MEDS: THIAMINE HCL 100 MG TABLET (FP) PO SCH (22:19)
[2020-07-06] MEDS: METHOCARBAMOL 500 MG TABLET PO PRN (22:19)
[2020-07-07] MEDS ORDERED: diazePAM 5 MG TABLET PO ONE (06:00)
[2020-07-07] MEDS ORDERED: METHADONE HCL 10 MG TABLET (FOR DETOX USE ONLY) PO ONE (10:00)
[2020-07-07] MEDS: PRENATAL VITAMINS W/ FOLIC ACID TABLET (FP) PO SCH (10:33)
[2020-07-07 10:53] LABS: SGOT/AST 180 U/L (15-37); SGPT/ALT 236 U/L (13-61)
[2020-07-07] MEDS: AMMONIUM LACTATE 12% LOTION 225 GM BOTTLE TP SCH ×2 (15:14→22:15)
[2020-07-07] MEDS: THIAMINE HCL 100 MG TABLET (FP) PO SCH (22:14)
[2020-07-07] MEDS: MELATONIN 5 MG TABLETS PO SCH (22:14)
[2020-07-07] MEDS: METHOCARBAMOL 500 MG TABLET PO PRN (22:15)
[2020-07-08] MEDS ORDERED: METHADONE HCL 5 MG TABLET (FOR DETOX USE ONLY) PO ONE (06:00)
[2020-07-08 08:56] VITALS: BP 115/82; PULSE 83; TEMP 97.1
== END 2020-07-08 09:01 | disposition home or self-care (01) | DRG 773 ==
LOC: YASAS 17:47 → Y3N 07-04 09:24
PROVIDERS: ADMIT Allergy & Immunology; ATTEND Allergy & Immunology
PROC: HZ2ZZZZ Detoxification Services for Substance Abuse Treatment (ICD-10-PCS; principal; 2020-07-04)
DX: F11.23 Opioid dependence with withdrawal (principal); F14.20 Cocaine dependence, uncomplicated; F13.20 Sedative, hypnotic or anxiolytic dependence, uncomplicated; F12.20 Cannabis dependence, uncomplicated; F17.210 Nicotine dependence, cigarettes, uncomplicated; M54.5 Low back pain; G89.29 Other chronic pain; B18.2 Chronic viral hepatitis C; R74.01 Elevation of levels of liver transaminase levels; Z88.8 Allergy status to other drugs, medicaments and biological substances
CPT/HCPCS: 36415; 80053; 84450; 84460; 85027; C9803; U0003

== ENCOUNTER 2020-09-04 13:53 | Inpatient (IN) | payer OTHER ==
[2020-09-04 17:42] VITALS: BMI 21.1
[2020-09-04] MEDS ORDERED: METHADONE HCL 10 MG TABLET (FOR DETOX USE ONLY) PO ONE (17:45)
[2020-09-04] MEDS ORDERED: NICOTINE POLACRILEX 2 MG GUM BUC PRN (17:45)
[2020-09-04] MEDS ORDERED: MENTHOL/PHENOL 1 EACH UD MM PRN (17:45)
[2020-09-04] MEDS ORDERED: MAG HYDROX/AL HYDROX/SIMETH 30 ML UNIT-DOSE CUP PO PRN (17:45)
[2020-09-04] MEDS ORDERED: ONDANSETRON *ODT* 4 MG TABLET SL PRN (17:45)
[2020-09-04] MEDS ORDERED: MAGNESIUM HYDROX 2400MG/30ML ORAL SUSPENSION 30 ML CUP PO PRN (17:45)
[2020-09-04] MEDS ORDERED: BISMUTH SUBSALICYLATE 524 MG/30 ML UD PO PRN (17:45)
[2020-09-04] MEDS ORDERED: ACETAMINOPHEN 325 MG TABLET (FP) PO PRN ×2 (17:45)
[2020-09-04] MEDS ORDERED: MAGNESIUM CITRATE 300 ML BOTTLE PO PRN (17:45)
[2020-09-04] MEDS ORDERED: cloNIDine HCL 0.1 MG TABLET PO PRN (17:45)
[2020-09-04] MEDS: hydrOXYzine PAMOATE 25 MG CAPSULE (FP) PO SCH ×2 (19:36→22:42)
[2020-09-04] MEDS: PRENATAL VITAMINS W/ FOLIC ACID TABLET (FP) PO SCH (19:37)
[2020-09-04] MEDS: THIAMINE HCL 100 MG TABLET (FP) PO SCH (22:42)
[2020-09-04] MEDS: MELATONIN 5 MG TABLETS PO SCH (22:42)
[2020-09-05] MEDS: hydrOXYzine PAMOATE 25 MG CAPSULE (FP) PO SCH ×2 (05:31→10:55)
[2020-09-05] MEDS ORDERED: METHADONE HCL 5 MG TABLET (FOR DETOX USE ONLY) ONE (09:17)
[2020-09-05] MEDS ORDERED: METHADONE HCL 10 MG TABLET (FOR DETOX USE ONLY) ONE (09:17)
[2020-09-05] MEDS ORDERED: METHADONE (DETOX) 20 MG, METHADONE (DETOX) 5 MG PO ONE (10:00)
[2020-09-05 10:29] LABS: HEMATOCRIT 34.8 % (35.4-49); HEMOGLOBIN 11.8 GM/dL (11.7-16.9); MCH 29.1 pg (25.7-33.7); MCHC 33.9 g/dl (32.0-35.9); MEAN CELL VOLUME 85.9 fl (80-96); MEAN PLT VOLUME 8.1 fl (7.5-11.1); PLATELET COUNT 247 K/MM3 (134-434); RBC 4.06 M/mm3 (4.00-5.60); RDW 15.9 % (11.9-15.9); WHITE BLOOD COUNT 4.7 K/mm3 (4.0-10.0)
[2020-09-05 10:38] LABS: ALBUMIN 3.3 g/dl (3.4-5.0); BLOOD UREA NITROGEN 11.3 mg/dL (7-18)
[2020-09-05 10:39] LABS: CALCIUM 8.3 mg/dL (8.5-10.1)
[2020-09-05 10:42] LABS: CREATININE 0.7 mg/dL (0.55-1.3)
[2020-09-05 10:43] LABS: BILIRUBIN,TOTAL 0.4 mg/dL (0.2-1); TOT PROT 6.7 g/dl (6.4-8.2)
[2020-09-05] MEDS: PRENATAL VITAMINS W/ FOLIC ACID TABLET (FP) PO SCH (10:54)
[2020-09-05] MEDS: METHOCARBAMOL 500 MG TABLET PO PRN (10:56)
[2020-09-05] MEDS: diazePAM 5 MG TABLET PO PRN ×2 (14:50→22:01)
[2020-09-05] MEDS: IBUPROFEN 400 MG TABLET (FP) PO PRN (14:51)
[2020-09-05] MEDS: MELATONIN 5 MG TABLETS PO SCH (21:59)
[2020-09-05] MEDS: QUEtiapine FUMARATE 50 MG TABLET PO SCH (21:59)
[2020-09-05] MEDS: THIAMINE HCL 100 MG TABLET (FP) PO SCH (21:59)
[2020-09-06] MEDS: diazePAM 5 MG TABLET PO PRN ×4 (06:25→22:42)
[2020-09-06] MEDS: hydrOXYzine PAMOATE 25 MG CAPSULE (FP) PO PRN ×3 (06:26→22:41)
[2020-09-06] MEDS ORDERED: METHADONE HCL 10 MG TABLET (FOR DETOX USE ONLY) PO ONE (10:00)
[2020-09-06] MEDS: PRENATAL VITAMINS W/ FOLIC ACID TABLET (FP) PO SCH (10:40)
[2020-09-06] MEDS ORDERED: MASKS NR ONE (12:42)
[2020-09-06] MEDS: QUEtiapine FUMARATE 50 MG TABLET PO SCH (22:41)
[2020-09-06] MEDS: MELATONIN 5 MG TABLETS PO SCH (22:41)
[2020-09-06] MEDS: THIAMINE HCL 100 MG TABLET (FP) PO SCH (22:41)
[2020-09-07] MEDS: hydrOXYzine PAMOATE 25 MG CAPSULE (FP) PO PRN ×3 (05:59→22:27)
[2020-09-07] MEDS: METHOCARBAMOL 500 MG TABLET PO PRN (06:00)
[2020-09-07] MEDS: diazePAM 5 MG TABLET PO PRN ×4 (06:00→22:27)
[2020-09-07] MEDS: IBUPROFEN 400 MG TABLET (FP) PO PRN (06:00)
[2020-09-07] MEDS ORDERED: METHADONE HCL 10 MG TABLET (FOR DETOX USE ONLY) ONE (09:10)
[2020-09-07] MEDS ORDERED: METHADONE HCL 5 MG TABLET (FOR DETOX USE ONLY) ONE (09:11)
[2020-09-07] MEDS ORDERED: METHADONE (DETOX) 10 MG, METHADONE (DETOX) 5 MG PO ONE (10:00)
[2020-09-07] MEDS: PRENATAL VITAMINS W/ FOLIC ACID TABLET (FP) PO SCH (10:42)
[2020-09-07] MEDS ORDERED: COLLOIDAL OATMEAL 1 BAR EACH TP PRN (10:50)
[2020-09-07] MEDS ORDERED: PANTOPRAZOLE 40 MG TABLET PO ONE (12:00)
[2020-09-07 14:11] LABS: SARS-CoV-2 NAA Not Detected (Not Detected)
[2020-09-07] MEDS ORDERED: CHLORHEXIDINE GLUCONATE 0.12% 15ML CUP MM SCH (22:00)
[2020-09-07] MEDS: QUEtiapine FUMARATE 100 MG TABLET (FP) PO SCH (22:27)
[2020-09-07] MEDS: MELATONIN 5 MG TABLETS PO SCH (22:27)
[2020-09-07] MEDS: THIAMINE HCL 100 MG TABLET (FP) PO SCH (22:27)
[2020-09-08] MEDS: hydrOXYzine PAMOATE 25 MG CAPSULE (FP) PO PRN ×3 (06:14→22:11)
[2020-09-08] MEDS: IBUPROFEN 400 MG TABLET (FP) PO PRN ×3 (06:15→22:12)
[2020-09-08] MEDS: diazePAM 5 MG TABLET PO PRN ×2 (06:17→10:24)
[2020-09-08] MEDS: PANTOPRAZOLE 40 MG TABLET PO SCH (06:19)
[2020-09-08] MEDS ORDERED: METHADONE HCL 10 MG TABLET (FOR DETOX USE ONLY) PO ONE (10:00)
[2020-09-08] MEDS ORDERED: DICYCLOMINE HCL 10 MG CAPSULE PO PRN (10:08)
[2020-09-08] MEDS ORDERED: SIMETHICONE 80 MG TAB.CHEW (FP) PO PRN (10:12)
[2020-09-08] MEDS: PRENATAL VITAMINS W/ FOLIC ACID TABLET (FP) PO SCH (10:24)
[2020-09-08 10:44] LABS: SGOT/AST 133 U/L (15-37); SGPT/ALT 177 U/L (13-61)
[2020-09-08] MEDS: METHOCARBAMOL 500 MG TABLET PO PRN (17:35)
[2020-09-08] MEDS ORDERED: diazePAM 5 MG TABLET PO ONE (17:59)
[2020-09-08] MEDS: MELATONIN 5 MG TABLETS PO SCH (22:10)
[2020-09-08] MEDS: QUEtiapine FUMARATE 100 MG TABLET (FP) PO SCH (22:10)
[2020-09-08] MEDS: THIAMINE HCL 100 MG TABLET (FP) PO SCH (22:10)
[2020-09-09] MEDS: hydrOXYzine PAMOATE 25 MG CAPSULE (FP) PO PRN (05:56)
[2020-09-09] MEDS: IBUPROFEN 400 MG TABLET (FP) PO PRN (05:56)
[2020-09-09] MEDS ORDERED: METHADONE HCL 5 MG TABLET (FOR DETOX USE ONLY) PO ONE (06:00)
[2020-09-09] MEDS: PANTOPRAZOLE 40 MG TABLET PO SCH (06:04)
[2020-09-09] MEDS: METHOCARBAMOL 500 MG TABLET PO PRN (06:11)
[2020-09-09 08:49] VITALS: BP 107/78; PULSE 112; TEMP 97.3
== END 2020-09-09 10:00 | disposition home or self-care (01) | DRG 773 ==
LOC: YASAS 13:53 → Y3N 18:53
PROVIDERS: ADMIT Allergy & Immunology; ATTEND Allergy & Immunology
PROC: HZ2ZZZZ Detoxification Services for Substance Abuse Treatment (ICD-10-PCS; principal; 2020-09-04)
DX: F11.23 Opioid dependence with withdrawal (principal); F10.230 Alcohol dependence with withdrawal, uncomplicated; F13.230 Sedative, hypnotic or anxiolytic dependence with withdrawal, uncomplicated; F14.20 Cocaine dependence, uncomplicated; F12.20 Cannabis dependence, uncomplicated; F17.210 Nicotine dependence, cigarettes, uncomplicated; F19.282 Other psychoactive substance dependence with psychoactive substance-induced sleep disorder; G47.00 Insomnia, unspecified; B18.2 Chronic viral hepatitis C; M54.5 Low back pain; G89.29 Other chronic pain; R74.01 Elevation of levels of liver transaminase levels; R63.4 Abnormal weight loss; Z68.21 Body mass index [BMI] 21.0-21.9, adult; Z88.0 Allergy status to penicillin
CPT/HCPCS: 36415; 80053; 84450; 84460; 85027; 86780; C9803; J0735; U0003; U0005

== ENCOUNTER 2021-09-07 12:02 | Inpatient (IN) | payer OTHER ==
[2021-09-07] MEDS ORDERED: LOPERAMIDE HCL 2 MG CAPSULE PO PRN (13:17)
[2021-09-07] MEDS ORDERED: BISMUTH SUBSALICYLATE 262 MG/15 ML BTL PO PRN (13:17)
[2021-09-07] MEDS ORDERED: IBUPROFEN 400 MG TABLET (FP) PO PRN (13:17)
[2021-09-07] MEDS ORDERED: ONDANSETRON *ODT* 4 MG TABLET SL PRN (13:17)
[2021-09-07] MEDS ORDERED: BENZOCAINE/MENTHOL (CHLORASEPTIC ) LOZENGE MM PRN (13:17)
[2021-09-07] MEDS ORDERED: MAG HYDROX/AL HYDROX/SIMETH 30 ML UNIT-DOSE CUP PO PRN (13:17)
[2021-09-07] MEDS ORDERED: chlordiazePOXIDE HCL 25 MG CAPSULE PO PRN (13:17)
[2021-09-07] MEDS ORDERED: ACETAMINOPHEN 325 MG TABLET (FP) PO PRN ×2 (13:17)
[2021-09-07] MEDS ORDERED: MAGNESIUM HYDROX 2400MG/30ML ORAL SUSPENSION 30 ML CUP PO PRN (13:17)
[2021-09-07] MEDS ORDERED: MAGNESIUM CITRATE 300 ML BOTTLE PO PRN (13:17)
[2021-09-07] MEDS ORDERED: DICYCLOMINE HCL 10 MG CAPSULE PO PRN (13:17)
[2021-09-07] MEDS ORDERED: cloNIDine HCL 0.1 MG TABLET PO PRN ×2 (13:17→15:25)
[2021-09-07] MEDS ORDERED: methaDONE HCL 10 MG TABLET (FOR DETOX USE ONLY) PO ONE ×2 (14:00→15:45)
[2021-09-07 14:13] VITALS: BMI 21.2
[2021-09-07] MEDS ORDERED: LORazepam 1 MG TABLET PO PRN (15:25)
[2021-09-07] MEDS ORDERED: chlordiazePOXIDE HCL 25 MG CAPSULE PO SCH (17:00)
[2021-09-07] MEDS: PRENATAL VITAMINS W/ FOLIC ACID TABLET (FP) PO SCH (18:22)
[2021-09-07] MEDS: NICOTINE 14 MG/24 HOURS TOPICAL PATCH TD SCH (18:22)
[2021-09-07] MEDS: hydrOXYzine PAMOATE 25 MG CAPSULE (FP) PO SCH ×3 (18:23→22:11)
[2021-09-07] MEDS: LORazepam 2 MG TABLET PO SCH ×2 (18:25→22:12)
[2021-09-07 18:58] LABS: HEMATOCRIT 37.6 % (35.4-49); HEMOGLOBIN 12.3 GM/dL (11.7-16.9); MCH 28.5 pg (25.7-33.7); MCHC 32.6 g/dl (32.0-35.9); MEAN CELL VOLUME 87.5 fl (80-96); MEAN PLT VOLUME 8.3 fl (7.5-11.1); PLATELET COUNT 284 10^3/uL (134-434); RBC 4.29 M/mm3 (4.00-5.60); RDW 15.2 % (11.9-15.9); WHITE BLOOD COUNT 4.9 K/mm3 (4.0-10.0)
[2021-09-07 19:10] LABS: ALBUMIN 3.6 g/dl (3.4-5.0); BLOOD UREA NITROGEN 16.2 mg/dL (7-18)
[2021-09-07 19:15] LABS: BILIRUBIN,TOTAL 0.3 mg/dL (0.2-1); TOT PROT 7.6 g/dl (6.4-8.2)
[2021-09-07] MEDS: MELATONIN 5 MG TABLETS PO SCH (22:11)
[2021-09-07] MEDS: THIAMINE HCL 100 MG TABLET (FP) PO SCH (22:11)
[2021-09-07] MEDS ORDERED: COLLOIDAL OATMEAL 1 BAR EACH TP PRN (22:56)
[2021-09-08] MEDS: LORazepam 2 MG TABLET PO SCH ×4 (06:07→22:13)
[2021-09-08] MEDS: hydrOXYzine PAMOATE 25 MG CAPSULE (FP) PO SCH ×5 (06:08→22:13)
[2021-09-08] MEDS ORDERED: methaDONE HCL 10 MG TABLET (FOR DETOX USE ONLY) ONE (09:32)
[2021-09-08] MEDS: NICOTINE 14 MG/24 HOURS TOPICAL PATCH TD SCH (10:13)
[2021-09-08] MEDS: PRENATAL VITAMINS W/ FOLIC ACID TABLET (FP) PO SCH (10:13)
[2021-09-08] MEDS: THIAMINE HCL 100 MG TABLET (FP) PO SCH (22:13)
[2021-09-08] MEDS: MELATONIN 5 MG TABLETS PO SCH (22:13)
[2021-09-09] MEDS ORDERED: chlordiazePOXIDE HCL 25 MG CAPSULE PO SCH (05:00)
[2021-09-09] MEDS: hydrOXYzine PAMOATE 25 MG CAPSULE (FP) PO SCH ×5 (05:27→22:39)
[2021-09-09] MEDS: LORazepam 1 MG TABLET PO SCH ×4 (05:27→22:39)
[2021-09-09] MEDS ORDERED: methaDONE HCL 10 MG TABLET (FOR DETOX USE ONLY) PO ONE ×2 (10:00)
[2021-09-09] MEDS: METHOCARBAMOL 500 MG TABLET PO PRN (10:15)
[2021-09-09] MEDS: PRENATAL VITAMINS W/ FOLIC ACID TABLET (FP) PO SCH (10:16)
[2021-09-09] MEDS: NICOTINE 14 MG/24 HOURS TOPICAL PATCH TD SCH (10:17)
[2021-09-09 14:08] LABS: SARS-CoV-2 NAA Not Detected (Not Detected)
[2021-09-09] MEDS ORDERED: COLLOIDAL OATMEAL 1 BAR EACH TP PRN (15:54)
[2021-09-09] MEDS: THIAMINE HCL 100 MG TABLET (FP) PO SCH (22:39)
[2021-09-09] MEDS: MELATONIN 5 MG TABLETS PO SCH (22:39)
[2021-09-10] MEDS ORDERED: chlordiazePOXIDE HCL 10 MG CAPSULE PO PRN
[2021-09-10] MEDS ORDERED: LORazepam 0.5 MG TABLET PO PRN
[2021-09-10] MEDS ORDERED: chlordiazePOXIDE HCL 10 MG CAPSULE PO SCH (05:00)
[2021-09-10] MEDS: hydrOXYzine PAMOATE 25 MG CAPSULE (FP) PO SCH ×5 (05:24→22:08)
[2021-09-10] MEDS: LORazepam 0.5 MG TABLET PO SCH ×4 (05:25→22:07)
[2021-09-10] MEDS ORDERED: methaDONE HCL 10 MG TABLET (FOR DETOX USE ONLY) ONE (09:15)
[2021-09-10] MEDS: PRENATAL VITAMINS W/ FOLIC ACID TABLET (FP) PO SCH (10:05)
[2021-09-10] MEDS: NICOTINE 14 MG/24 HOURS TOPICAL PATCH TD SCH (10:05)
[2021-09-10] MEDS: NICOTINE 10 MG CARTRIDGE (INHALER) IH PRN (10:05)
[2021-09-10] MEDS: METHOCARBAMOL 500 MG TABLET PO PRN (10:07)
[2021-09-10] MEDS: MELATONIN 5 MG TABLETS PO SCH (22:07)
[2021-09-10] MEDS: THIAMINE HCL 100 MG TABLET (FP) PO SCH (22:08)
[2021-09-11] MEDS ORDERED: LORazepam 0.5 MG TABLET PO ONE (05:00)
[2021-09-11] MEDS ORDERED: chlordiazePOXIDE HCL 10 MG CAPSULE PO SCH (05:00)
[2021-09-11] MEDS: hydrOXYzine PAMOATE 25 MG CAPSULE (FP) PO SCH ×5 (05:44→22:13)
[2021-09-11] MEDS ORDERED: methaDONE HCL 10 MG TABLET (FOR DETOX USE ONLY) PO ONE ×2 (10:00)
[2021-09-11] MEDS: PRENATAL VITAMINS W/ FOLIC ACID TABLET (FP) PO SCH (10:18)
[2021-09-11] MEDS: NICOTINE 14 MG/24 HOURS TOPICAL PATCH TD SCH (10:19)
[2021-09-11] MEDS: NICOTINE 10 MG CARTRIDGE (INHALER) IH PRN (10:20)
[2021-09-11] MEDS: MELATONIN 5 MG TABLETS PO SCH (22:13)
[2021-09-11] MEDS: THIAMINE HCL 100 MG TABLET (FP) PO SCH (22:13)
[2021-09-12] MEDS ORDERED: chlordiazePOXIDE HCL 10 MG CAPSULE PO ONE (05:00)
[2021-09-12] MEDS: hydrOXYzine PAMOATE 25 MG CAPSULE (FP) PO SCH ×2 (05:46→11:12)
[2021-09-12 08:59] VITALS: TEMP 97.3
[2021-09-12 09:16] VITALS: BP 104/75; PULSE 81
[2021-09-12] MEDS: PRENATAL VITAMINS W/ FOLIC ACID TABLET (FP) PO SCH (11:12)
[2021-09-12] MEDS: NICOTINE 14 MG/24 HOURS TOPICAL PATCH TD SCH (11:12)
== END 2021-09-12 10:40 | disposition home or self-care (01) | DRG 773 ==
LOC: YASAS 12:02 → Y3N 15:08
PROVIDERS: ADMIT Allergy & Immunology; ATTEND Surgery
PROC: HZ2ZZZZ Detoxification Services for Substance Abuse Treatment (ICD-10-PCS; principal; 2021-09-07)
DX: F10.230 Alcohol dependence with withdrawal, uncomplicated (principal); F11.23 Opioid dependence with withdrawal; F14.20 Cocaine dependence, uncomplicated; F12.20 Cannabis dependence, uncomplicated; F17.210 Nicotine dependence, cigarettes, uncomplicated; F19.24 Other psychoactive substance dependence with psychoactive substance-induced mood disorder; B18.2 Chronic viral hepatitis C; M54.50 Low back pain, unspecified; G89.29 Other chronic pain; R63.4 Abnormal weight loss; Z68.21 Body mass index [BMI] 21.0-21.9, adult; Z88.5 Allergy status to narcotic agent; Z56.0 Unemployment, unspecified; Z59.00 Homelessness unspecified
CPT/HCPCS: 36415; 80053; 82947; 83036; 84450; 84460; 85027; 86780; 87811; 93005; 93010; C9803-CS; U0003; U0005

== ENCOUNTER 2022-01-06 13:22 | Inpatient (IN) | payer OTHER ==
[2022-01-06 15:17] VITALS: BMI 19.8
[2022-01-06] MEDS ORDERED: IBUPROFEN 600 MG TABLET (FP) PO PRN (21:04)
[2022-01-06] MEDS ORDERED: NALOXONE HCL 0.4 MG/ML VIAL IM PRN (21:04)
[2022-01-06] MEDS ORDERED: clonazePAM 0.5 MG ODT TABLETS SL PRN (21:04)
[2022-01-06] MEDS ORDERED: methaDONE HCL 10 MG TABLET (FOR DETOX USE ONLY) PO ONE (21:04)
[2022-01-06] MEDS ORDERED: MAG HYDROX/AL HYDROX/SIMETH 30 ML UNIT-DOSE CUP PO PRN (21:04)
[2022-01-06] MEDS ORDERED: NALOXONE HCL (KLOXXADO) 8 MG SPRAY NS PRN (21:04)
[2022-01-06] MEDS ORDERED: BISMUTH SUBSALICYLATE 524 MG/30 ML PO PRN (21:04)
[2022-01-06] MEDS ORDERED: NICOTINE 10 MG CARTRIDGE (INHALER) IH PRN (21:04)
[2022-01-06] MEDS ORDERED: IBUPROFEN 400 MG TABLET (FP) PO PRN (21:04)
[2022-01-06] MEDS ORDERED: ACETAMINOPHEN 325 MG TABLET (FP) PO PRN ×2 (21:04)
[2022-01-06] MEDS ORDERED: DICYCLOMINE HCL 10 MG CAPSULE PO PRN (21:04)
[2022-01-06] MEDS ORDERED: BENZOCAINE/MENTHOL (CHLORASEPTIC ) LOZENGE MM PRN (21:04)
[2022-01-06] MEDS ORDERED: P-EPHED 60MG/TRIPROLIDI 2.5MG TABLET PO PRN (21:04)
[2022-01-06] MEDS ORDERED: LOPERAMIDE HCL 2 MG CAPSULE PO PRN (21:04)
[2022-01-06] MEDS ORDERED: MAGNESIUM HYDROX 2400MG/30ML ORAL SUSPENSION 30 ML CUP PO PRN (21:04)
[2022-01-06] MEDS ORDERED: guaiFENesin 200 MG/10 ML 10 ML UNIT-DOSE CUPS PO PRN (21:04)
[2022-01-06] MEDS ORDERED: cloNIDine HCL 0.1 MG TABLET PO PRN (21:04)
[2022-01-06] MEDS ORDERED: MAGNESIUM CITRATE 300 ML BOTTLE PO PRN (21:04)
[2022-01-06] MEDS ORDERED: methaDONE HCL 10 MG TABLET (FOR DETOX USE ONLY) ONE (21:47)
[2022-01-06] MEDS: METHOCARBAMOL 500 MG TABLET PO PRN (23:15)
[2022-01-06] MEDS: THIAMINE HCL 100 MG TABLET (FP) PO SCH (23:16)
[2022-01-06] MEDS: MELATONIN 5 MG TABLETS PO SCH (23:19)
[2022-01-07 09:59] LABS: CALCIUM 8.6 mg/dL (8.5-10.1); HEMATOCRIT 36.6 % (35.4-49); MCH 28.1 pg (25.7-33.7); MCHC 32.7 g/dl (32.0-35.9); MEAN CELL VOLUME 85.9 fl (80-96); MEAN PLT VOLUME 8.2 fl (7.5-11.1); PLATELET COUNT 230 10^3/uL (134-434); RBC 4.26 M/mm3 (4.00-5.60); RDW 16.3 % (11.9-15.9); WHITE BLOOD COUNT 6.7 K/mm3 (4.0-10.0)
[2022-01-07 10:00] LABS: ALBUMIN 3.4 g/dl (3.4-5.0); BLOOD UREA NITROGEN 20.5 mg/dL (7-18)
[2022-01-07 10:03] LABS: CREATININE 0.7 mg/dL (0.55-1.3)
[2022-01-07 10:04] LABS: TOT PROT 7.4 g/dl (6.4-8.2)
[2022-01-07] MEDS: PRENATAL VITAMINS W/ FOLIC ACID TABLET (FP) PO SCH (10:49)
[2022-01-07] MEDS: NICOTINE 14 MG/24 HOURS TOPICAL PATCH TD SCH (10:59)
[2022-01-07] MEDS: MELATONIN 5 MG TABLETS PO SCH (22:49)
[2022-01-07] MEDS: THIAMINE HCL 100 MG TABLET (FP) PO SCH (22:49)
[2022-01-07] MEDS: METHOCARBAMOL 500 MG TABLET PO PRN (22:50)
[2022-01-08 08:33] LABS: URINE APPEARANCE CLEAR; URINE BILIRUBIN NEGATIVE (NEGATIVE); URINE COLOR YELLOW; URINE GLUCOSE (UA) NEGATIVE (NEGATIVE); URINE KETONE NEGATIVE (NEGATIVE); URINE LEUK ESTERASE NEGATIVE (NEGATIVE); URINE NITRITE NEGATIVE (NEGATIVE); URINE PROTEIN NEGATIVE (NEGATIVE)
[2022-01-08] MEDS ORDERED: methaDONE HCL 10 MG TABLET (FOR DETOX USE ONLY) PO ONE (10:00)
[2022-01-08] MEDS: PRENATAL VITAMINS W/ FOLIC ACID TABLET (FP) PO SCH (11:01)
[2022-01-08] MEDS: NICOTINE 14 MG/24 HOURS TOPICAL PATCH TD SCH (11:01)
[2022-01-08] MEDS: THIAMINE HCL 100 MG TABLET (FP) PO SCH (22:11)
[2022-01-08] MEDS: MELATONIN 5 MG TABLETS PO SCH (22:11)
[2022-01-08] MEDS: METHOCARBAMOL 500 MG TABLET PO PRN (22:12)
[2022-01-09 09:54] VITALS: RESP 16
[2022-01-09] MEDS: PRENATAL VITAMINS W/ FOLIC ACID TABLET (FP) PO SCH (10:17)
[2022-01-09] MEDS: NICOTINE 14 MG/24 HOURS TOPICAL PATCH TD SCH (10:17)
[2022-01-09 13:04] VITALS: BP 110/59; PULSE 54; TEMP 96.8
[2022-01-10] MEDS ORDERED: methaDONE HCL 10 MG TABLET (FOR DETOX USE ONLY) PO ONE (10:00)
== END 2022-01-09 15:59 | disposition home or self-care (01) | DRG 773 ==
LOC: YASAS 13:22 → Y3N 22:15
PROVIDERS: ADMIT Allergy & Immunology; ATTEND Surgery
PROC: HZ2ZZZZ Detoxification Services for Substance Abuse Treatment (ICD-10-PCS; principal; 2022-01-06)
DX: F11.23 Opioid dependence with withdrawal (principal); F10.230 Alcohol dependence with withdrawal, uncomplicated; F14.20 Cocaine dependence, uncomplicated; F17.210 Nicotine dependence, cigarettes, uncomplicated; F19.24 Other psychoactive substance dependence with psychoactive substance-induced mood disorder; M54.50 Low back pain, unspecified; G89.29 Other chronic pain; Z86.19 Personal history of other infectious and parasitic diseases; Z88.8 Allergy status to other drugs, medicaments and biological substances
CPT/HCPCS: 36415; 80053; 81003; 85027; 86780; 87811; 93005; 93010; C9803-CS; U0003; U0005

== ENCOUNTER 2024-01-02 10:16 | Inpatient (IN) | payer OTHER ==
[2024-01-02 10:43] VITALS: BMI 19.5
[2024-01-02] MEDS ORDERED: NALOXONE (NARCAN) HCL 4 MG/0.1 ML SPRAY NS PRN (11:10)
[2024-01-02] MEDS ORDERED: ONDANSETRON *ODT* 4 MG TABLET SL PRN (11:10)
[2024-01-02] MEDS ORDERED: IBUPROFEN 600 MG TABLET (FP) PO PRN (11:10)
[2024-01-02] MEDS ORDERED: BENZONATATE 200 MG CAPSULE PO PRN (11:10)
[2024-01-02] MEDS ORDERED: NICOTINE POLACRILEX 2 MG LOZENGE BC PRN (11:10)
[2024-01-02] MEDS ORDERED: BISMUTH SUBSALICYLATE 524 MG/30 ML PO PRN (11:10)
[2024-01-02] MEDS ORDERED: NALOXONE HCL 0.4 MG/ML VIAL IM PRN (11:10)
[2024-01-02] MEDS ORDERED: NICOTINE POLACRILEX 2 MG GUM BUC PRN (11:10)
[2024-01-02] MEDS ORDERED: guaiFENesin 600 MG TABLET.ER (FP) PO PRN (11:10)
[2024-01-02] MEDS ORDERED: MAGNESIUM HYDROX 2400MG/30ML ORAL SUSPENSION 30 ML CUP PO PRN (11:10)
[2024-01-02] MEDS ORDERED: IBUPROFEN 400 MG TABLET (FP) PO PRN (11:10)
[2024-01-02] MEDS ORDERED: LOPERAMIDE HCL 2 MG CAPSULE PO PRN (11:10)
[2024-01-02] MEDS ORDERED: MAG HYDROX/AL HYDROX/SIMETH 30 ML UNIT-DOSE CUP PO PRN (11:10)
[2024-01-02] MEDS ORDERED: POLYETHYLENE GLYCOL (HEALTHYLAX) 3350 17 GM PACKET PO PRN (11:10)
[2024-01-02] MEDS ORDERED: P-EPHED 60MG/TRIPROLIDI 2.5MG TABLET PO PRN (11:10)
[2024-01-02] MEDS ORDERED: DICYCLOMINE HCL 10 MG CAPSULE PO PRN (11:10)
[2024-01-02] MEDS ORDERED: ACETAMINOPHEN 325 MG TABLET (FP) PO PRN (11:10)
[2024-01-02] MEDS ORDERED: BENZOCAINE/MENTHOL (CHLORASEPTIC ) LOZENGE MM PRN (11:10)
[2024-01-02] MEDS ORDERED: cloNIDine HCL 0.1 MG TABLET PO PRN (11:12)
[2024-01-02] MEDS: MELATONIN 5 MG TABLETS PO SCH (22:11)
[2024-01-02] MEDS: THIAMINE 100 MG TABLET PO SCH (22:12)
[2024-01-02] MEDS: methaDONE HCL 10 MG TABLET (FOR DETOX USE ONLY) PO ONE (22:12)
[2024-01-03] MEDS: PRENATAL VITAMINS W/ FOLIC ACID TABLET (FP) PO SCH (09:29)
[2024-01-03] MEDS: METHOCARBAMOL 500 MG TABLET PO PRN (09:29)
[2024-01-03 11:32] LABS: HEMATOCRIT 27.8 % (35.4-49); HEMOGLOBIN 8.3 GM/dL (11.7-16.9); MCHC 29.9 g/dl (32.0-35.9); MEAN CELL VOLUME 66.3 fl (80-96); PLATELET COUNT 144 10^3/uL (134-434); RBC 4.19 M/mm3 (4.00-5.60); RDW 22.4 % (11.9-15.9); WHITE BLOOD COUNT 5.4 K/mm3 (4.0-10.0)
[2024-01-03 11:34] LABS: MCH 19.8 pg (25.7-33.7)
[2024-01-03 11:40] LABS: CHLORIDE 107 mmol/L (98-107); POTASSIUM 4.6 mmol/L (3.5-5.1); SODIUM 138 mmol/L (136-145)
[2024-01-03 11:55] LABS: ANION GAP 8 mmol/L (4-13); BLOOD UREA NITROGEN 10.6 mg/dL (7-18); CALCIUM 8.2 mg/dL (8.5-10.1); CO2 24 mmol/L (21-32)
[2024-01-03 11:56] LABS: ALBUMIN 2.8 g/dl (3.4-5.0); GLUCOSE,RANDOM 82 mg/dL (74-106)
[2024-01-03 11:59] LABS: CREATININE 0.6 mg/dL (0.55-1.3); SGOT/AST 46 U/L (15-37); SGPT/ALT 37 U/L (13-61)
[2024-01-03 12:00] LABS: BILIRUBIN,TOTAL 0.3 mg/dL (0.2-1); TOT PROT 7.2 g/dl (6.4-8.2)
[2024-01-03 12:01] LABS: ALK PHOS 97 U/L (45-117)
[2024-01-03] MEDS: FERROUS SO4 325 MG TABLET (FP) PO SCH (17:53)
[2024-01-03] MEDS: SULFAMETHOXAZOLE/TRIMETHOPRIM 800MG/160MG D.S. TABLET PO SCH (22:40)
[2024-01-03] MEDS: SUVOREXANT 10 MG TABLET PO PRN (22:44)
[2024-01-04 06:36] VITALS: RESP 16
[2024-01-04] MEDS: methaDONE HCL 10 MG TABLET (FOR DETOX USE ONLY) PO ONE (09:23)
[2024-01-04] MEDS: CLINDAMYCIN PHOSPHATE 1% TOPICAL GEL 30 GM TUBE TP SCH (23:00)
[2024-01-05 09:27] VITALS: BP 122/82; PULSE 85; TEMP 98.5
[2024-01-06] MEDS ORDERED: methaDONE HCL 10 MG TABLET (FOR DETOX USE ONLY) PO ONE (10:00)
== END 2024-01-05 12:00 | disposition home or self-care (01) | DRG 773 ==
LOC: YASAS 10:16 → Y6N 12:36
PROVIDERS: ADMIT Neuromusculoskeletal Medicine & OMM; ATTEND Surgery
PROC: HZ2ZZZZ Detoxification Services for Substance Abuse Treatment (ICD-10-PCS; principal; 2024-01-02)
DX: F11.23 Opioid dependence with withdrawal (principal); F14.20 Cocaine dependence, uncomplicated; F12.20 Cannabis dependence, uncomplicated; F17.210 Nicotine dependence, cigarettes, uncomplicated; F19.282 Other psychoactive substance dependence with psychoactive substance-induced sleep disorder; D64.9 Anemia, unspecified; A49.02 Methicillin resistant Staphylococcus aureus infection, unspecified site; Z22.322 Carrier or suspected carrier of Methicillin resistant Staphylococcus aureus; Z59.02 Unsheltered homelessness; Z88.8 Allergy status to other drugs, medicaments and biological substances
CPT/HCPCS: 36415; 80053; 80305; 80307; 85027; 86780; 87070; 87186; 87205; 93005; 93010